=== PATIENT | male | born 1975 | race Hispanic/Latino ===

== ENCOUNTER 2019-06-05 14:19 | Inpatient (IN) | payer SELFPAY ==
[~2019-06-05] VITALS: Ht 170.2 cm; Wt 74.8 kg
[2019-06-05] MEDS ORDERED: ONDANSETRON HCL INJ 2MG/ML 2ML 2 MG/ML VIAL IV STA (14:47)
[2019-06-05] MEDS ORDERED: SODIUM CHLORIDE 0.9% 1000ML 1,000 ML IV STA (14:47)
[2019-06-05] MEDS ORDERED: CEFOXITIN 1GM/ D5W 50ML 50 ML IV STA (14:53)
[2019-06-05] MEDS ORDERED: MORPHINE SULFATE INJ 4 MG/ML INJ 1ML IV STA ×2 (14:53→17:22)
[2019-06-05] MEDS ORDERED: DICYCLOMINE HCL 20 MG/2 ML VIAL IM ONE (15:00)
[2019-06-05 15:32] LABS: BASOPHILS % 0.3 % (0.0-1.0); EOSINOPHILS # (AUTO) 0.2 (0.0-0.4); HEMATOCRIT 42.2 % (38.2-49.6); HEMOGLOBIN 16.1 g/dL (14.0-18.0); LYMPHOCYTES # (AUTO) 1.6 (1.0-3.2); LYMPHOCYTES % 10.2 % (18.0-39.1); MEAN CORPUSCULAR HEMOGLOBIN 38.2 pg (28-32); MEAN CORPUSCULAR HGB CONC 38.2 g/dL (31-35); MONOCYTES # (AUTO) 1.2 (0.2-0.8); MONOCYTES % 7.8 % (4.4-11.3); NEUTROPHILS # (AUTO) 12.5 (2.1-6.9); NEUTROPHILS % 80.1 % (38.7-80.0); PLATELET COUNT 236 x10e3/uL (140-360); RED BLOOD COUNT 4.22 x10e6/uL (4.3-5.7); RED CELL DISTRIBUTION WIDTH 13.4 % (11.7-14.4)
[2019-06-05 15:34] LABS: CLARITY,URINE SL CLOUDY (CLEAR); COLOR,URINE ORANGE (YELLOW)
[2019-06-05 15:36] LABS: LEUKOCYTE ESTERASE ,URINE NEGATIVE (NEGATIVE); NITRITE,URINE NEGATIVE (NEGATIVE); PROTEIN,URINE DIPSTICK 1+ (NEGATIVE)
[2019-06-05 15:37] LABS: BILIRUBIN,URINE SMALL (NEGATIVE); KETONES,URINE TRACE (NEGATIVE); URINE UROBILINOGEN 4 mg/dL (0.2 - 1)
[2019-06-05 15:47] LABS: ALANINE AMINOTRANSFERASE 20 IU/L (0-55); ALBUMIN 3.5 g/dL (3.5-5.0); ALBUMIN/GLOBULIN RATIO 0.8 (0.8-2.0); ALKALINE PHOSPHATASE 73 IU/L (40-150); AMYLASE 29 U/L (25-125); BLOOD UREA NITROGEN 10 mg/dL (7-26); BUN/CREATININE RATIO 12 (6-25); CARBON DIOXIDE 27 mmol/L (22-29); CHLORIDE 99 mmol/L (98-107); CREATININE, SERUM 0.84 mg/dL (0.72-1.25); EST GLOMERULAR FILTRATION RATE > 60 ML/MIN (60-); GLUCOSE 100 mg/dL (74-118); LIPASE 7 U/L (8-78); SODIUM 138 mmol/L (136-145)
[2019-06-05 15:50] LABS: BACTERIA,URINE FEW /HPF; EPITHELIAL CELLS,URINE RARE /LPF; MUCUS,URINE MODERATE (RARE)
[2019-06-05] MEDS ORDERED: IOPAMIDOL 370 MG/ML 200 ML INFUS..BTL INJ ONE (16:24)
[2019-06-05] MEDS ORDERED: SODIUM CHLORIDE 0.9% 50ML 50 ML ONE (16:24)
--- NOTE | 2019-06-05 16:27 | Diagnostic Imaging Report ---
EXAM: CT Abdomen and Pelvis WITH intravenous contrast INDICATION: Abdominal pain COMPARISON: None. TECHNIQUE: Abdomen and pelvis were scanned utilizing a multidetector helical scanner from the lung base to the pubic symphysis after administration of IV contrast. Coronal and sagittal reformations were obtained. Routine protocol was performed. Scan was performed during portal venous phase. IV CONTRAST: 100mL of Isovue 370 ORAL CONTRAST: None RADIATION DOSE: Total DLP: 323 mGy*cm Dose modulation, iterative reconstruction, and/or weight based adjustment of the mA/kV was utilized to reduce the radiation dose to as low as reasonably achievable. FINDINGS: LOWER THORAX: Normal. HEPATOBILIARY: No focal liver lesion. No biliary ductal dilation. Normal gallbladder. SPLEEN: No splenomegaly. PANCREAS: No focal masses or ductal dilatation. ADRENALS: No adrenal nodules. KIDNEYS/URETERS: No hydronephrosis, stones, or solid mass lesions. PELVIC ORGANS/BLADDER: Minimal bladder wall thickening, likely reactive. PERITONEUM / RETROPERITONEUM: No free air or fluid. LYMPH NODES: No lymphadenopathy. VESSELS: Mild atherosclerotic calcifications of the nonaneurysmal abdominal aorta and major branches GI TRACT: Diverticulosis with an 8 cm segment of sigmoid colon demonstrating prominent wall thickening with associated adjacent fat stranding and trace fluid. No focal drainable diverticular abscess. No extraluminal air. BONES AND SOFT TISSUES: No acute osseous injury. No suspicious lytic or blastic lesions. Mild degenerative changes of the visualized spine. IMPRESSION: Acute sigmoid diverticulitis. No focal diverticular abscess. Signed by: Cher Mcleod MD on 06/05/2019 4:23 PM
[2019-06-05] MEDS ORDERED: KETOROLAC TROMETHAMINE 30 MG/ML VIAL IV STA (16:30)
[2019-06-05] MEDS ORDERED: CIPROFLOXACIN 400 MG/D5W 200ML 200 ML IV ONE (16:45)
[2019-06-05] MEDS ORDERED: METRONIDAZOLE 500MG/NS 100ML 100 ML IV ONE (17:30)
--- NOTE | 2019-06-05 17:30 | NUR ---
Patient denies the use of any home medications.
[2019-06-05] MEDS ORDERED: LEVOFLOXACIN 500MG/D5W 100ML IV SCH (18:00)
[2019-06-05] MEDS ORDERED: ONDANSETRON HCL INJ 2MG/ML 2ML 2 MG/ML VIAL IV PRN (18:00)
[2019-06-05] MEDS ORDERED: MORPHINE SULFATE 2 MG/ML SYR 1ML IV PRN (18:00)
[2019-06-05] MEDS ORDERED: MORPHINE SULFATE INJ 4 MG/ML INJ 1ML IV PRN (18:00)
[2019-06-05] MEDS: METRONIDAZOLE 500MG/NS 100ML 100 ML IV SCH ×2 (18:18→23:25)
--- OUTSIDE RECORDS SUMMARY | 2019-06-05 19:07 | XMS REPORT ---
Author Author [facility] Address Unknown Phone Unavailable Care Team Providers Care Plant Pathologist Name Role Phone CITLALI SOLIS Unavailable Unavailable Problems This patient has no known problems. Allergies, Adverse Reactions, Alerts This patient has no known allergies or adverse reactions. Medications This patient has no known medications. Results Test Description Test Time Test Comments Text Results Atomic Results Result Comments CT ABDOMEN/PELVIS W 2019-06-05 16:20:00 [place] [address] Patient Name: UZAIR ARREGUIN JR MR #: [id number] : 1975 Age/Sex: 44/M Req #: [id number] Adm Physician: Ordered by: LEXIE QUINTANA BAKER TEST Report #: [id number] Location: ER Room/Bed: Procedure: [id number] CT/CT ABDOMEN/PELVIS W Exam Date: 06/05/19 Exam Time: 1600 REPORT STATUS: Signed EXAM: CT Abdomen and Pelvis WITH intravenous contrast INDICATION: Abdominal pain COMPARISON: None. TECHNIQUE: Abdomen and pelvis were scanned utilizing a multidetector helical scanner from the lung base to the pubic symphysis after administration of IV contrast. Coronal and sagittal reformations were obtained. Routine protocol was performed. Scan was performed during portal venous phase. IV CONTRAST: 100mL of Isovue 370 ORAL CONTRAST: None RADIATION DOSE: Total DLP: 323 mGy*cm Dose modulation, iterative reconstruction, and/or weight based adjustment of the mA/kV was utilized to reduce the radiation dose to as low as reasonably achievable. FINDINGS: LOWER THORAX: Normal. HEPATOBILIARY: No focal liver lesion. No biliary ductal dilation. Normal gallbladder. SPLEEN: No splenomegaly. PANCREAS: No focal masses or ductal dilatation. ADRENALS: No adrenal nodules. KIDNEYS/URETERS: No hydronephrosis, stones, or solid mass lesions. PELVIC ORGANS/BLADDER: Minimal bladder wall thickening, likely reactive. PERITONEUM / RETROPERITONEUM: No free air or fluid. LYMPH NODES: No lymphadenopathy. VESSELS: Mild atherosclerotic calcifications of the nonaneurysmal abdominal aorta and major branches GI TRACT: Diverticulosis with an 8 cm segment of sigmoid colon demonstrating prominent wall thickening with associated adjacent fat stranding and trace fluid. No foc al drainable diverticular abscess. No extraluminal air. BONES AND SOFT TISSUES: No acute osseous injury. No suspicious lytic or blastic lesions. Mild degenerative changes of the visualized spine. IMPRESSION: Acute sigmoid diverticulitis. No focal diverticular abscess. Signed by: Pamela Baires MD on 06/05/2019 4:23 PM Dictated By: PAMELA BAIRES MD [id number] Transcribed By: TESHA on 06/05/19 1623 COPY TO: LEXIE QUINTANA NP
--- NOTE | 2019-06-05 20:30 | NUR ---
PATIENT RESTING IN BED AOX4, NO SIGNS OF DISTRESS NOTED. IV ANTIBIOTICS ARE RUNNING AT ORDERED RATE AND PATIENT VOICES PAIN AT A LEVEL OF 8 AND WILL BE MEDICATED ORDERED. BED IS IN LOWEST POSITION, BOTH SIDE RAILS ARE UP, CALL LIGHT IS WITHIN EASY REACH, WILL CONTINUE TO MONITOR.
[2019-06-05] MEDS ORDERED: ACETAMINOPHEN 325 MG TAB PO PRN (20:45)
[2019-06-05] MEDS ORDERED: HYDRALAZINE HCL 20 MG/ML VIAL IV PRN (20:45)
[2019-06-05] MEDS ORDERED: ACETAMINOPHEN/CODEINE 300MG - 30MG TAB PO PRN (20:45)
[2019-06-05] MEDS ORDERED: DICYCLOMINE HCL 10 MG CAP PO PRN (20:45)
[2019-06-05] MEDS ORDERED: LEVOFLOXACIN 500MG/D5W 100ML 100 ML IV SCH (21:00)
[2019-06-05] MEDS ORDERED: SODIUM CHLORIDE 0.9% 250ML 250 ML ONE (21:15)
[2019-06-05 21:30] VITALS: BP 111/63
[2019-06-05 21:41] VITALS: BP 111/63
[2019-06-06] VITALS (8 sets, daily range): BP systolic 109–132; BP diastolic 64–77
[2019-06-06] MEDS: MORPHINE SULFATE INJ 4 MG/ML INJ 1ML IV PRN ×4 (00:48→19:35)
[2019-06-06] MEDS: ONDANSETRON HCL INJ 2MG/ML 2ML 2 MG/ML VIAL IV PRN ×3 (00:49→11:38)
[2019-06-06 05:44] LABS: BASOPHILS % 0.2 % (0.0-1.0); EOSINOPHILS # (AUTO) 0.3 (0.0-0.4); EOSINOPHILS % 3.1 % (0.0-6.0); HEMATOCRIT 33.8 % (38.2-49.6); HEMOGLOBIN 13.2 g/dL (14.0-18.0); LYMPHOCYTES # (AUTO) 1.6 (1.0-3.2); LYMPHOCYTES % 14.4 % (18.0-39.1); MEAN CORPUSCULAR HEMOGLOBIN 38.9 pg (28-32); MEAN CORPUSCULAR HGB CONC 39.1 g/dL (31-35); MEAN CORPUSCULAR VOLUME 99.7 fL (81-99); MONOCYTES # (AUTO) 1.2 (0.2-0.8); MONOCYTES % 10.4 % (4.4-11.3); NEUTROPHILS # (AUTO) 7.9 (2.1-6.9); NEUTROPHILS % 71.4 % (38.7-80.0); PLATELET COUNT 220 x10e3/uL (140-360); RED BLOOD COUNT 3.39 x10e6/uL (4.3-5.7); RED CELL DISTRIBUTION WIDTH 13.2 % (11.7-14.4)
[2019-06-06] MEDS: METRONIDAZOLE 500MG/NS 100ML 100 ML IV SCH ×3 (06:05→18:41)
[2019-06-06 06:10] LABS: ALANINE AMINOTRANSFERASE 18 IU/L (0-55); ALBUMIN 2.8 g/dL (3.5-5.0); ALBUMIN/GLOBULIN RATIO 0.8 (0.8-2.0); ALKALINE PHOSPHATASE 79 IU/L (40-150); ANION GAP 10.1 mmol/L (8-16); BLOOD UREA NITROGEN 13 mg/dL (7-26); BUN/CREATININE RATIO 17 (6-25); CALCIUM 8.4 mg/dL (8.4-10.2); CARBON DIOXIDE 28 mmol/L (22-29); CHLORIDE 105 mmol/L (98-107); CREATININE, SERUM 0.78 mg/dL (0.72-1.25); EST GLOMERULAR FILTRATION RATE > 60 ML/MIN (60-); GLUCOSE 94 mg/dL (74-118); MAGNESIUM 1.9 MG/DL (1.3-2.1); POTASSIUM 4.1 mmol/L (3.5-5.1); SODIUM 139 mmol/L (136-145)
[2019-06-06 06:32] LABS: THYROID STIMULATING HORMONE 2.609 uIU/mL (0.350-4.940)
--- NOTE | 2019-06-06 07:15 | NUR ---
Received patient lying in bed with eyes closed. Respiration even and unlabored without SOB. Call light in reach.
[2019-06-06] MEDS: FAMOTIDINE 20 MG TAB PO SCH ×2 (08:09→18:41)
--- NOTE | 2019-06-06 15:19 | NUR ---
GAVE PACKET OF INFORMATION WITH [facility] [employer] FOR ASSISTANCE WITH LOW TO NO INCOME TO PATIENT. RESOURCES THAT PATIENT MAY BE ABLE TO FOLLOW UP UPON DISCHARGE. PT EDUCATED ON EACH RESOURCE AND UNDERSTANDING HOW TO FOLLOW UP TO SEE IF QUALIFIED FOR EACH RESOURCE.
--- NOTE | 2019-06-06 19:15 | NUR ---
Report given to third shift lieutenant. Respiration even and unlabored without SOB. Call light in reach.
[2019-06-06] MEDS: ONDANSETRON HCL 4 MG ORAL DISINTEGRATING TAB PO PRN (19:35)
--- NOTE | 2019-06-06 21:00 | NUR ---
PATIENT RESTING IN BED AOX4, NO SIGNS OF DISTRESS NOTED. IV ANTIBIOTICS HAVE JUST FINISHED RUNNING AT ORDERED RATE AND PATIENT VOICES PAIN AT A LEVEL OF 5 AND WAS PREVIOUSLY MEDICATED ORDERED. BED IS IN LOWEST POSITION, BOTH SIDE RAILS ARE UP, CALL LIGHT IS WITHIN EASY REACH, WILL CONTINUE TO MONITOR.
[2019-06-06] MEDS: LEVOFLOXACIN 500 MG TAB PO SCH (21:07)
[2019-06-07] VITALS (8 sets, daily range): BP systolic 113–124; BP diastolic 65–81
[2019-06-07] MEDS: MORPHINE SULFATE INJ 4 MG/ML INJ 1ML IV PRN ×2 (00:13→05:20)
[2019-06-07] MEDS: ONDANSETRON HCL 4 MG ORAL DISINTEGRATING TAB PO PRN ×2 (00:13→05:20)
[2019-06-07] MEDS: METRONIDAZOLE 500 MG TAB PO SCH ×5 (00:13→23:32)
[2019-06-07 05:53] LABS: ANION GAP 6.1 mmol/L (8-16); BLOOD UREA NITROGEN 8 mg/dL (7-26); BUN/CREATININE RATIO 11 (6-25); CALCIUM 7.7 mg/dL (8.4-10.2); CARBON DIOXIDE 30 mmol/L (22-29); CHLORIDE 102 mmol/L (98-107); CREATININE, SERUM 0.74 mg/dL (0.72-1.25); EST GLOMERULAR FILTRATION RATE > 60 ML/MIN (60-); GLUCOSE 96 mg/dL (74-118); MAGNESIUM 1.8 MG/DL (1.3-2.1); POTASSIUM 4.1 mmol/L (3.5-5.1); SODIUM 134 mmol/L (136-145)
[2019-06-07 07:28] LABS: BASOPHILS % 0.3 % (0.0-1.0); EOSINOPHILS # (AUTO) 0.4 (0.0-0.4); EOSINOPHILS % 3.4 % (0.0-6.0); HEMATOCRIT 37.9 % (38.2-49.6); HEMOGLOBIN 13.1 g/dL (14.0-18.0); LYMPHOCYTES # (AUTO) 1.9 (1.0-3.2); MEAN CORPUSCULAR HEMOGLOBIN 33.8 pg (28-32); MEAN CORPUSCULAR HGB CONC 34.6 g/dL (31-35); MEAN CORPUSCULAR VOLUME 97.7 fL (81-99); MONOCYTES # (AUTO) 1.1 (0.2-0.8); MONOCYTES % 9.3 % (4.4-11.3); NEUTROPHILS # (AUTO) 8.3 (2.1-6.9); NEUTROPHILS % 70.6 % (38.7-80.0); PLATELET COUNT 244 x10e3/uL (140-360); RED BLOOD COUNT 3.88 x10e6/uL (4.3-5.7); RED CELL DISTRIBUTION WIDTH 12.9 % (11.7-14.4)
[2019-06-07] MEDS: FAMOTIDINE 20 MG TAB PO SCH ×2 (08:36→16:50)
[2019-06-07] MEDS: HYDROCODONE/APAP 5MG-325MG TAB PO PRN ×2 (11:35→21:04)
[2019-06-07] MEDS: LEVOFLOXACIN 500 MG TAB PO SCH (21:04)
[2019-06-08 00:08] VITALS: BP 116/74
[2019-06-08] MEDS: HYDROCODONE/APAP 5MG-325MG TAB PO PRN (03:36)
[2019-06-08 04:35] VITALS: BP 126/73
[2019-06-08 05:20] LABS: BASOPHILS % 0.2 % (0.0-1.0); EOSINOPHILS # (AUTO) 0.4 (0.0-0.4); EOSINOPHILS % 3.9 % (0.0-6.0); HEMOGLOBIN 13.7 g/dL (14.0-18.0); LYMPHOCYTES # (AUTO) 1.4 (1.0-3.2); LYMPHOCYTES % 13.7 % (18.0-39.1); MEAN CORPUSCULAR HEMOGLOBIN 39.5 pg (28-32); MEAN CORPUSCULAR HGB CONC 40.3 g/dL (31-35); MONOCYTES # (AUTO) 0.9 (0.2-0.8); MONOCYTES % 8.7 % (4.4-11.3); NEUTROPHILS # (AUTO) 7.7 (2.1-6.9); NEUTROPHILS % 73.2 % (38.7-80.0); PLATELET COUNT 257 x10e3/uL (140-360); RED BLOOD COUNT 3.47 x10e6/uL (4.3-5.7); RED CELL DISTRIBUTION WIDTH 12.6 % (11.7-14.4)
[2019-06-08] MEDS: METRONIDAZOLE 500 MG TAB PO SCH ×2 (05:33→12:15)
[2019-06-08 05:39] LABS: ANION GAP 11.8 mmol/L (8-16); BLOOD UREA NITROGEN 9 mg/dL (7-26); BUN/CREATININE RATIO 13 (6-25); CALCIUM 9.1 mg/dL (8.4-10.2); CARBON DIOXIDE 28 mmol/L (22-29); CHLORIDE 101 mmol/L (98-107); EST GLOMERULAR FILTRATION RATE > 60 ML/MIN (60-); GLUCOSE 100 mg/dL (74-118); POTASSIUM 3.8 mmol/L (3.5-5.1); SODIUM 137 mmol/L (136-145)
[2019-06-08 07:19] VITALS: BP 128/74
[2019-06-08 07:41] VITALS: BP 128/74
[2019-06-08] MEDS: FAMOTIDINE 20 MG TAB PO SCH (08:18)
[2019-06-08 11:31] VITALS: BP 144/90
[2019-06-08] MEDS ORDERED: LEVAQUIN500 MG PO (14:24)
[2019-06-08] MEDS ORDERED: FLAGYL500 MG PO (14:24)
[2019-06-08] MEDS ORDERED: DICYCLOMINE HCL10 MG PO (14:24)
--- NOTE | 2019-06-08 15:08 | NUR ---
Patient discharged Home, prescription given, Diet instruction regarding Diverticulitis given patient verbalized understanding, IV canula removed with tip intact, no ss of infiltration noted, denies any pain, not in any distress, walked with him to front lobby
--- NOTE | 2019-06-08 16:39 | Discharge Summary ---
PERTINENT HISTORY AND PHYSICAL FINDINGS/CHIEF COMPLAINT: Abdominal pain with nausea. HISTORY OF PRESENT ILLNESS: Mr. Willis is a 44-year-old male with no past medical history, who admitted with complaints of constant sharp abdominal pain, mostly in the left lower quadrant. He had associated nausea, but denied vomiting. He denied diarrhea, fever, sick contacts, or travel. PAST MEDICAL HISTORY: Denies any past medical history. PAST SURGICAL HISTORY: Include abdominal surgery as a new born. FAMILY HISTORY: Noncontributory. SOCIAL HISTORY: Smoked 1-pack per day of tobacco. Drink 3 to 4 beers per day. Some illicit drug use in the past. ALLERGIES: NO KNOWN ALLERGIES. ADMITTING DIAGNOSIS: Acute sigmoid diverticulitis. DISCHARGE DIAGNOSIS: Acute sigmoid diverticulitis. On admission WBCs 15.57 on 06/05/2019, neutrophils 80.1%. Sodium 138, potassium 4, BUN 10, creatinine 0.84. Estimated GFR greater than 60. Hemoglobin A1c 5.2%. LFTs were within normal limits. Lipase 7. Amylase 29. TSH 2.609. Urinalysis showed some protein, ketones, RBCs, and moderate amount of mucus. Final urine culture showed Streptococcus viridans 10,000 to 50,000 CFU/mL. CT of the abdomen and pelvis done on June 04, showed acute sigmoid diverticulitis with no focal diverticular abscess. The patient was on IV antibiotics initially. He will be sent home on oral Flagyl 500 mg p.o. every 6 hours and Levaquin 500 mg p.o. q.24 hours for 7 days as well as dicyclomine as needed in case he has another bout of diverticulitis. We will discharge him on a diverticulosis/diverticulitis, friendly diet, activity level as tolerated. The patient to follow up with his PCP in 1 to 2 weeks. Today, the day of discharge, WBCs 10.45, hemoglobin 13.7, hematocrit 34, neutrophils 73.2%. Sodium 137, potassium 3.8, chloride 101, CO2 of 28, BUN 9, creatinine 0.7, estimated GFR greater than 60. The patient currently denies any pain. Physical exam within normal limits. Vital signs are stable. Dictated by He Parnell, JAYCE Vincenzo Ta MD P/MODL /[id number]
== END 2019-06-08 14:56 | disposition home or self-care (01) | DRG 392 ==
LOC: ER 14:19 → ERHOLD 17:51 → ER 18:44 → MED/SURG2 19:10 → OBSVTOIN 06-07 15:08
PROVIDERS: ADMIT Internal Medicine; ATTEND Internal Medicine
DX: K57.32 Diverticulitis of large intestine without perforation or abscess without bleeding (principal); E87.1 Hypo-osmolality and hyponatremia; F17.200 Nicotine dependence, unspecified, uncomplicated; K74.60 Unspecified cirrhosis of liver
CPT/HCPCS: 36415; 74177; 80048; 80053; 81001; 82150; 83036; 83690; 83735; 84443; 85025; 87086; 99284; G0378; J0500; J1885; J1956; J2270; J2405; J7030; J7050; Q0162; Q9967